=== PATIENT | male | born 1985 | race Asian ===

== ENCOUNTER → 2022-12-08 14:00 | Outpatient (CLI) | payer OTHER, SELFPAY ==
[2022-12-08 14:07] LABS: Adenovirus F 40/41, stool Not Detected (NotDetected); Astrovirus Not Detected (NotDetected); Campylobacter Not Detected (NotDetected); Cryptosporidium Not Detected (NotDetected); Cyclospora Cayetanesis Not Detected (NotDetected); Entamoeba histolytica Not Detected (NotDetected); Enteroaggregative E coli Not Detected (NotDetected); Enterotoxigenic E coli Not Detected (NotDetected); Giardia lamblia Not Detected (NotDetected); Norovirus Not Detected (NotDetected); Plesimonas Shigalloides, PCR Not Detected (NotDetected); Rotavirus A Not Detected (NotDetected); Salmonella, PCR Not Detected (NotDetected); Sapovirus Not Detected (NotDetected); Shiga-like toxin E coli Not Detected (NotDetected); Shigella Enterovasive E coli Not Detected (NotDetected); Vibrio Cholerae Not Detected (NotDetected); Vibrio, PCR Not Detected (NotDetected); Yersinia Entercolitica, PCR Not Detected (NotDetected)
[2022-12-08 18:35] LABS: Clostridium Difficile A/B, PCR Detected (NotDetected); Enteropathogenic E coli Detected (NotDetected)
== END ==
PROVIDERS: PCP Internal Medicine Adolescent Medicine; Visit Provider Physician Assistant
DX: A09 Infectious gastroenteritis and colitis, unspecified (principal); A04.72 Enterocolitis due to Clostridium difficile, not specified as recurrent; A04.0 Enteropathogenic Escherichia coli infection
CPT/HCPCS: 87507

== ENCOUNTER → 2023-04-03 15:35 | Outpatient (CLI) | payer OTHER, SELFPAY ==
[2023-04-03 15:42] LABS: Adenovirus F 40/41, stool Not Detected (NotDetected); Astrovirus Not Detected (NotDetected); Campylobacter Not Detected (NotDetected); Cryptosporidium Not Detected (NotDetected); Cyclospora Cayetanesis Not Detected (NotDetected); Entamoeba histolytica Not Detected (NotDetected); Enteroaggregative E coli Not Detected (NotDetected); Enterotoxigenic E coli Not Detected (NotDetected); Giardia lamblia Not Detected (NotDetected); Norovirus Not Detected (NotDetected); Plesimonas Shigalloides, PCR Not Detected (NotDetected); Rotavirus A Not Detected (NotDetected); Salmonella, PCR Not Detected (NotDetected); Sapovirus Not Detected (NotDetected); Shiga-like toxin E coli Not Detected (NotDetected); Shigella Enterovasive E coli Not Detected (NotDetected); Vibrio Cholerae Not Detected (NotDetected); Vibrio, PCR Not Detected (NotDetected); Yersinia Entercolitica, PCR Not Detected (NotDetected)
[2023-04-04 08:03] LABS: Clostridium Difficile A/B, PCR Detected (NotDetected); Enteropathogenic E coli Detected (NotDetected)
== END ==
PROVIDERS: PCP Internal Medicine Adolescent Medicine; Visit Provider Physician Assistant
DX: A09 Infectious gastroenteritis and colitis, unspecified (principal); A04.72 Enterocolitis due to Clostridium difficile, not specified as recurrent; A04.0 Enteropathogenic Escherichia coli infection
CPT/HCPCS: 87507

== ENCOUNTER 2023-11-05 14:21 | Outpatient (CLI) | payer OTHER, SELFPAY ==
[2023-11-05 14:38] LABS: Adenovirus F 40/41, stool Not Detected (NotDetected); Astrovirus Not Detected (NotDetected); Campylobacter Not Detected (NotDetected); Cryptosporidium Not Detected (NotDetected); Cyclospora Cayetanesis Not Detected (NotDetected); Entamoeba histolytica Not Detected (NotDetected); Enteroaggregative E coli Not Detected (NotDetected); Enteropathogenic E coli Not Detected (NotDetected); Enterotoxigenic E coli Not Detected (NotDetected); Giardia lamblia Not Detected (NotDetected); Norovirus Not Detected (NotDetected); Plesimonas Shigalloides, PCR Not Detected (NotDetected); Rotavirus A Not Detected (NotDetected); Salmonella, PCR Not Detected (NotDetected); Sapovirus Not Detected (NotDetected); Shiga-like toxin E coli Not Detected (NotDetected); Shigella Enterovasive E coli Not Detected (NotDetected); Vibrio Cholerae Not Detected (NotDetected); Vibrio, PCR Not Detected (NotDetected); Yersinia Entercolitica, PCR Not Detected (NotDetected)
[2023-11-08 11:30] LABS: Clostridium Difficile A/B, PCR Detected (NotDetected)
== END 2023-11-05 23:59 ==
PROVIDERS: PCP Physician Assistant; Visit Provider Physician Assistant
DX: A09 Infectious gastroenteritis and colitis, unspecified (principal); R19.7 Diarrhea, unspecified; A04.72 Enterocolitis due to Clostridium difficile, not specified as recurrent
CPT/HCPCS: 87507

== ENCOUNTER 2025-01-11 11:19 | Emergency (ER) | payer SELFPAY ==
[2025-01-11 11:31] VITALS: BP 145/97; PULSE 98; O2SAT 100
--- NOTE | 2025-01-11 11:35 | XR_ITS ---
PROCEDURE INFORMATION: Exam: XR Right Hand Exam date and time: 01/11/2025 11:39 AM Age: 39 years old Clinical indication: Other: Partial thumb amputation TECHNIQUE: Imaging protocol: Radiologic exam of the right hand. Views: 3 or more views. COMPARISON: No relevant prior studies available. FINDINGS: Bones/joints: There is amputation involving the distal half of the 1st distal phalanx with bony and soft tissue loss. There is a comminuted fracture at the amputation site of the remaining portion of the 1st distal phalanx. First IP joint appears intact. Soft tissues: There is a crescent shaped radiopaque density present superficially in the soft tissues at the amputation site close to the skin surface that may be related to patient's bandage or represent a embedded foreign body. This should be correlated clinically. IMPRESSION: Evidence of recent amputation 1st distal phalanx as discussed above.
[2025-01-11 11:37] VITALS: BP 145/97; PULSE 83; RESP 16; TEMP 36.7; O2SAT 100; BMI 23.3
--- NOTE | 2025-01-11 11:48 | HMH.EDGENADL ---
Discharge Plan Disposition Patient Disposition: Xfer Short-Term Hosp Chief Complaint: Extremity Injury, Upper Prescriptions Prescriptions: No Action vancomycin 125 mg capsule 125 mg PO Patient Comments: TAKE 1 CAPSULE BY MOUTH 4 TIMES DAILY FOR 10 DAYS Referrals Follow up/Referrals: Provider,Referral, [Referring] - See instructions Activity Restrictions/Add. Instructions Additional Instructions/Restrictions: Please present immediately to [facility] emergency department, when you get to registration tell them that you are on the expected list. 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 by RN): Patient states he cut the tip of his thumb off sunday while in [place]. States that all they did was clean and wrap his thumb and sent him home. He presents today with pain and concerns for the use of his thumb. History of Present Illness HPI narrative: Patient is a 39-year-old right handed male who presents emergency department for evaluation of thumb pain. Patient was fixing a industrial exhaust fan on Sunday when he cut the tip of his right thumb off. He went to the level where they updated his tetanus, wrapped it and discharged him with hand clinic follow-up. No repair was performed. He has been taking Augmentin. He has significant pain causing him to become concerned and present here for continued evaluation. No new trauma. Related Data Home Medications ?Medication ?Instructions ?Recorded ?Confirmed vancomycin 125 mg capsule 125 mg PO 11/15/23 11/15/23 Allergies Allergy/AdvReac Type Severity Reaction Status Date / Time No Known Allergies Allergy Verified 11/15/23 16:04 [facility] Disclaimer: The information contained in this section may have been updated after the patient was seen, as this information can be updated by other users. Medical History C. difficile colitis Surgical History No significant past surgical history Family History Other No significant family history Social History Smoking Status: Current every day smoker alcohol intake: current alcohol intake frequency: 0-2 drinks per day current occupational status: employed Travel in the last 8 weeks: None Have you lived/traveled outside [place] in past 30 days?: No Contact w/someone who lives/traveled outside [place] past 30 days?: No Exposure to someone with infectious disease in past 14 days?: No Do you have a fever (greater than 100.4 F or 38 C)?: No Have you tested positive for COVID-19: No Exposed to someone with COVID-19 in past 14 days?: No Do you have a sore throat?: No Do you have a cough?: No Do you have any weakness?: No Do you have any diarrhea?: No Are you experiencing any unusual bleeding?: No Do you have any muscle aches/pain?: No Do you have any abdominal pain?: No Are you experiencing loss of taste or smell?: No Other Medical History Have you received the Pneumonia Vaccine: No ROS Obtained: Yes Systems reviewed as appropriate & no additional complaints except as documented Physical Exam General General appearance: alert Head Head exam: atraumatic and normocephalic Eye Eye exam: Present PERRL ENT ENT exam: Present mucous membranes moist Neck Neck exam: Present normal inspection Chest Chest inspection: Present normal inspection and symmetric chest wall rise Respiratory Respiratory exam: Absent respiratory distress Cardiovascular Cardiovascular exam: Present regular rate Abdominal Exam Abdominal exam: Present soft; Absent tenderness Extremities Exam Extremities exam: Present other (Partial amputation of the distal right thumb with exposed bone, muscle belly, tendon. No arterial hemorrhage. Sensation proximal to the amputation intact.) Neurological Exam Neurological exam: Present alert Psychiatric Psychiatric exam: Present normal affect Skin Skin exam: Present warm and dry Medical Decision Making Medical Records Screening: Per USPSTF and CDC recommendations, given the prevalence of disease in our region, it is our hospital?s policy to screen for HIV and viral Hepatitis for all patients aged 18 and over and those with ongoing risk factors. [place] Inquiry Pt receiving controlled substance: No Vital Signs: 01/11/25 11:37 Temperature 98.1 F Temperature Source Oral Pulse Rate [Radial] 83 Respiratory Rate 16 Blood Pressure [Right Arm] 145/97 H Blood Pressure Mean [Right Arm] 113 Blood Pressure Source [Right Arm] Automatic Cuff Blood Pressure Position [Right Arm] Sitting 02 Sat by Pulse Oximetry 100 Oxygen Delivery Method Room Air Orders (Tests/Meds): ED MEDICATIONS Discontinued Medications Generic Name Dose Route Start Last Admin Trade Name Román PRN Reason Stop Dose Admin Cefazolin Sodium 2 gm 01/11/25 11:46 Cefazolin 1gm Vial IM 01/11/25 11:47 ONCE ONE ORDERS Category Date Time Status Hand XR right minimum 3 views [XR hand RT min 3V] Stat Exams 01/11/25 11:35 Completed HIV Combo Stat Lab 01/11/25 11:40 Ordered Hepatitis C Ab Qual. W/ RFX Stat Lab 01/11/25 11:40 Ordered Medical Decision Narrative: In summary patient is a 39-year-old male with past medical history described above who presents emergency department for evaluation of partial dominant thumb amputation. Patient is hemodynamically stable nontoxic-appearing upon arrival, afebrile. Patient has obvious distal thumb amputation with exposed muscle belly and tendon. X-ray obtained and shows partial amputation with some of the distal phalanx preserved. Patient was in pain and sensory exam is intact proximal to the amputation so a nerve block was conducted with 1% lidocaine with success. Case was discussed with Dr. Head and Dr. Hogan [facility] regarding management and they accepted patient for continued evaluation at this time as it is very likely patient will need temporizing fix and OR flap to preserve length. Critical Care Critical Care Time Critical Care Time: No
[2025-01-11 12:00] VITALS: BP 140/83; PULSE 106; O2SAT 95
[2025-01-11] MEDS: CEFAZOLIN 1GM VIAL 2 GM IM (12:22)
[2025-01-11 12:32] VITALS: BP 145/78; PULSE 80; RESP 16; TEMP 36.7; O2SAT 99
== END 2025-01-11 12:53 | disposition short-term general hospital (02) ==
PROVIDERS: Emergency Provider Emergency Medicine; PCP Internal Medicine Adolescent Medicine
DX: S68.521A Partial traumatic transphalangeal amputation of right thumb, initial encounter (principal); M79.644 Pain in right finger(s); W26.9XXA Contact with unspecified sharp object(s), initial encounter; Y93.9 Activity, unspecified; Y92.89 Other specified places as the place of occurrence of the external cause; Y99.9 Unspecified external cause status
CPT/HCPCS: 73130; 99284